=== PATIENT | male | born 1975 | race Caucasian/White ===

== ENCOUNTER 2017-03-29 09:37 | Inpatient (IN) | payer OTHER ==
[~2017-03-29] VITALS: Ht 185.4 cm; Wt 91.3 kg
[2017-03-29] VITALS (81 sets, daily range): BP systolic 95–188; BP diastolic 70–137
--- NOTE | ~2017-03-29 | HC ---
[facility] [place] [address] CONSULTATION Name: ABDIRAHMAN RAO Room #: 237-P [facility] IN M.R.#: [id number] Admission: 03/29/17 Attend Phys: Ethan Nava MD Discharge: Date of : 79 Report #: [id number] THIS REPORT FOR: //name// CC: Avtar Nava DATE OF SERVICE: 03/29/2017 REASON FOR CONSULTATION: Sudden cardiac arrest. HISTORY OF PRESENT ILLNESS: This is a 42-year-old male patient with prior history of coronary artery disease, was found to be unresponsive at work. He subsequently had an AICD placed at work, which proceeded to shocking due to the development of ventricular fibrillation. He converted to sinus mechanism and that deteriorated to ventricular tachycardia and was shocked a total of three times. Upon arrival, he had a left bundle-branch block with no prior history ECG available. Apparently, the patient had not had any symptoms or any complaints prior to that event this morning. PAST MEDICAL HISTORY: Significant for ADHD. MEDICATIONS AT HOME: Adderall 10 mg daily. ALLERGIES: No known drug allergies. SOCIAL HISTORY: The patient is . Does not smoke or consume alcohol. Does not follow a particular exercise regimen or dietary restriction. FAMILY HISTORY: Negative for significant premature cardiovascular disease. REVIEW OF SYSTEMS: Except for symptoms previously mentioned and those commensurate with comorbid state, the 10-point review of system is negative. ELECTROCARDIOGRAM: Sinus tachycardia with a left bundle-branch block. LABORATORIES: Noted and reviewed in the chart. PHYSICAL EXAMINATION: GENERAL: An unresponsive male, intubated, in no apparent distress, but not responsive. HEENT: Normocephalic, atraumatic. Pupils are equal, round, reactive to light and accommodation. Extraocular muscles are intact. Sclerae and conjunctivae are anicteric. NECK: JVD is normal. Carotid upstrokes are bilaterally symmetrical. No bruits are heard. No thyromegaly. No lymphadenopathy. LUNGS: Clear to auscultation. No wheezes, rhonchi or crackles. No CVA [address] [address] CONSULTATION Name: ABDIRAHMAN RAO Room #: 237- ADM IN M.R.#: [id number] Admission: 03/29/17 Attend Phys: Ethan Nava MD Discharge: Date of : 79 Report #: [id number] tenderness. CARDIAC: Demonstrates a regular rhythm. Normal first and second heart sounds. No ventricular or atrial gallops, no rubs noted. No murmurs. No lifts or heaves, PMI normal. ABDOMEN: Soft, nontender, nondistended. Normal bowel sounds. EXTREMITIES: Without cyanosis, clubbing or edema. Distal pulses are intact. DTR symmetrical. NEUROLOGIC: Cranial nerves 2-12 are grossly normal and symmetrical. PSYCHIATRIC: Alert, oriented with normal affect. SKIN: Warm and dry. IMPRESSION AND PLAN: Sudden cardiac arrest in an individual who prior to this had no symptoms whatsoever or issues. In view of the left bundle-branch block, I am going to proceed directly with angiography. The risks, complications and alternative have been discussed with those present. We will proceed to determine whether this is a coronary ischemic event or an antiarrhythmic event. <ELECTRONICALLY SIGNED> By: Adrian Ugarte MD 04/01/17 1849 00 2139 Adrian Ugarte MD /nt
--- NOTE | ~2017-03-29 | HC ---
[facility] [place] [address] CONSULTATION Name: ABDIRAHMAN RAO Room #: 237-P [facility] M.R.#: [id number] Admission: 03/29/17 Attend Phys: Adrian Ugarte Discharge: Date of : 79 Report #: [id number] THIS REPORT FOR: //name// CC: dArian gUarte Hospitalist Service Avtar [place] DATE OF SERVICE: 03/29/2017 DATE OF SERVICE: 03/29/2017. REFERRING PROVIDER: Hospitalist service. REASON FOR CONSULTATION: Respiratory failure. CHIEF COMPLAINT: Altered mental status. HISTORY OF PRESENT ILLNESS: Our group was asked to evaluate the patient in consultation while hospitalized at [facility]. A 42-year-old male unable to give any history. History taken from discussion with healthcare providers available and the at the bedside. Apparently, had been in his usual state of health, which is no health problems other than attention deficit disorder for which he takes Adderall. Subsequently, he was found unresponsive by coworkers, when they heard snoring, thought he might have been apneic and automated external defibrillator device was brought to the area, and the patient was shocked 3 times, and subsequently, EMS arrived, stated he was in V-tach and also defibrillated him, brought to the emergency department of our institution with some cursory laboratories, essentially normal except for an elevated ALT and AST, mildly elevated troponin. Glucose was normal. CBC normal. Subsequently, went to cardiac laboratory equipment cleaner but no significant epicardial coronary artery disease noted, brought back to the ICU; however, seizures had been noted. He is on multiple anti-epileptics at this time, but no seizure activity but it is also not responsive. He has not recovered neurologically at all in between episodes. We were asked to assist with management, currently on mechanical ventilatory support with no significant elevation in peak pressures. Does have spontaneous respirations noted. ALLERGIES: None known. OUTPATIENT MEDICATIONS: Include Adderall. PAST MEDICAL HISTORY: Attention deficit disorder. SOCIAL HISTORY: Nonsmoker and no significant alcohol consumption. Recent travel to [facility]. No other recent travel, no ill feelings. [facility] [address] [place] [address] CONSULTATION Name: ABDIRAHMAN RAO Room #: 237-P [facility] M.R.#: [id number] Admission: 03/29/17 Attend Phys: Adrian Gorevarunmike Discharge: Date of : 79 Report #: [id number] FAMILY HISTORY: Unobtainable. REVIEW OF SYSTEMS: Otherwise, unobtainable due to current status. However, the states had been feeling well even up to the point of leaving for work today. PHYSICAL EXAMINATION: VITAL SIGNS: Afebrile, pulse 90s and regular, respiratory rate 14, blood pressure 123/81. GENERAL: This is a middle-aged male on the ventilator and unresponsive to voice, some extensor posturing with deep pain. ENT: Endotracheal tube in place. Obvious lacerations in tongue from tongue biting noted. NECK: Supple, no lymphadenopathy. LUNGS: Clear. No wheezes or crackles. CARDIOVASCULAR: Heart was regular. No murmurs noted. ABDOMEN: Soft, no masses noted. Bowel sounds are active. EXTREMITIES: Warm, 2+ pulses, no edema. NEUROLOGIC: The patient was unresponsive except to deep pain, with some extensor posturing of upper extremities. Pupils were equal and reactive, somewhat sluggish. LABORATORY DATA: As described in HPI with normal chemistry profile except for elevated ALT, AST, and troponin. CBC normal. Other laboratories pending. IMPRESSION: 1. Acute cardiopulmonary arrest with findings of ventricular tachycardia apparently as an outpatient. 2. Obvious seizures, unclear if there are any inciting event or if they are secondary to the acute arrest. 3. Respiratory failure, acute, secondary to above. 4. Elevated ALT and AST, likely related to the acute event. SUGGESTIONS: 1. Echocardiogram. 2. Check chest radiograph. 3. Continue with mechanical ventilatory support. 4. No hypothermia protocol at this time. 5. EEG per neurology and antiepileptics per neurology. 6. Await followup laboratories. 7. Continue ICU supportive care. 8. Additional recommendations to follow. Thank you for requesting our suggestions. Discussed with at the bedside as [address] [address] CONSULTATION Name: ABDIRAHMAN RAO Room #: 237-P [facility] Lizeth M.RTanya#: [id number] Admission: 03/29/17 Attend Phys: Adrian Ugarte Discharge: Date of : 79 Report #: [id number] well as nursing. Critical care time 25 minutes to this point not including any procedures. By: 1351 0051 Ramon Parmar MD /nt
--- NOTE | ~2017-03-29 | CATHLAB ---
[facility] [address] [place] [address] INVASIVE PROCEDURE REPORT Name: ABDIRAHMAN RAO Room #: 237-P ADM IN M.R.#: [id number] Admission: 03/29/17 Attend Phys: Dee Meyers Discharge: Date of : 79 Date of Service: 03/29/172232 Report #: [id number] THIS REPORT FOR: //name// APPROVED REPORT Patient Details Patient Status: ED Room #: The patient is a 52 year-old male Event Personnel Adrian Ugarte Hand Printed Circuit Board Assembler, Viktoria Davis RN RN, Beto Salazar Monitor, Rosa Yuan RTR Monitor, Anabela Lopezub, Francisco Sanchez RN RN, Leah Rhoades RTR Monitor, Ramona Cristobal Procedures Performed Left Heart Cath w/or w/o Coronaries [id number] [facility] , Left Heart Catheterization, Supervision of conscious sedation Indication Sudden cardiac Procedure Narrative The Right Groin^ was infiltrated with 1% Lidocaine subcutaneous anesthesia. A PINNACLE 6FR Sheath #[id number] sheath was inserted into the RFA^. Coronary angiography was performed using coronary diagnostic catheters. The right coronary system was accessed and visualized with a JR4 catheter. The left coronary system was accessed and visualized with a JL4 catheter. The left ventricle was accessed and visualized with a PIGTAIL catheter. Left ventricular/Aortic Valve gradient assessed via catheter pullback. There was no hematoma. Intraoperative Conscious Sedation Sedation start time: 10:37 Case end Time: 11:31 Versed 3.0 mg Fluoro Time: 3.00 minutes Dose: 5869 mGy Contrast Type and Amount: Visipaque 100 ml Diagnostic Cath Left Main Large calibered normal origin bifurcates left anterior descending left circumflex free of high-grade disease [facility] [address] [place] [address] INVASIVE PROCEDURE REPORT Name: ABDIRAHMAN RAO Room #: 237-P ADM IN M.R.#: [id number] Admission: 03/29/17 Attend Phys: Dee Meyers Discharge: Date of : 79 Date of Service: 03/29/17 2233 Report #: [id number] LAD Moderate to large caliber type III vessel coursing in the anterior interventricular sulcus without high-grade disease in the proximal two thirds. In the distal third there is a segment of approximately 50% narrowing which is at least 20 mm in length prior to reconstituting itself and terminating as a bifurcating branch at the apex Diagonal 1 Moderate caliber vessel without significant stenosis noted Circumflex Large-caliber vessel coursing laterally terminating as a lateral wall marginal branch free of high-grade disease Right Coronary Large-caliber moderate vessel without high-grade disease. R PDA Small to moderate caliber without stenosis noted Hemodynamics The aortic pressure is 117/82 mmHg with a mean of 95 mmHg. The left ventricular pressure is 115/10 mmHg with a mean of mmHg. The left ventricular end diastolic pressure is 15 mmHg. Conclusion 1. Normal coronary arteries 2. Elevated liver ventricular end-diastolic pressures 3. Apparently only mildly decreased left ventricular function on a hand injection LV gram Recommendations 2-D echocardiography to evaluate left ventricular function <ELECTRONICALLY SIGNED> By: Adrian Ugarte MD 03/29/172232 32 32 Adrian Ugarte MD /INF
--- NOTE | ~2017-03-29 | 2DMMODE ---
[facility] [address] [place] [address] 2 D/M-MODE ECHOCARDIOGRAM Name: ABDIRAHMAN RAO Room #: 237-P ADM IN M.R.#: [id number] Admission: 03/29/17 Attend Phys: Adrian Srivastava Discharge: Date of : 79 Date of Service: 03/29/17 1722 Report #: [id number] THIS REPORT FOR: //name// ADDENDUM APPROVED REPORT Study performed: 03/29/2017 14:58:47 EXAM: Comprehensive 2D, Doppler, and color-flow Echocardiogram Patient Location: Bedside Room #: 237 Other Information Study Quality: Technically LimitedTechnically Difficult Technically limited study due to patient on ventilator, inability to position patient. Indications Acute FL Assess Ejection Fraction 2D Dimensions RVDd: 31.80 mm LVEF(%): 23.67 (>50%) IVSd: 12.08 (7-11mm) LVOT Diam: 22.55 (18-24mm) LVDd: 49.34 mm PWd: 12.42 (7-11mm) LVDs: 43.97 (25-40mm) Aortic Root: 34.45 mm IVC: 19.00 mm Meléndez's LVEF: 23.67 % Volumes Left Atrial Volume (Systole) Single Plane 4CH: 19.54 mL Single Plane 2CH: 27.00 mL LA ESV Index: 13.00 mL/m2 Aortic Valve AoV Peak Osvaldo.: 1.23 m/s AO Peak Gr.: 6.05 mmHg LVOT Max P.66 mmHg LVOT Max V: 0.96 m/s KENYATTA Vmax: 3.10 cm2 Mitral Valve E/A Ratio: 0.7 MV Decel. Time: 123.59 ms MV E Max Osvaldo.: 0.47 m/s [facility] [place] [address] 2 D/M-MODE ECHOCARDIOGRAM Name: ABDIRAHMAN RAO Room #: 237-P [facility] IN M.R.#: [id number] Admission: 03/29/17 Attend Phys: Adrian Srivastava Discharge: Date of : 79 Date of Service: 03/29/17 1722 Report #: [id number] MV A Osvaldo.: 0.66 m/s MV PHT: 35.84 ms IVRT: 96.89 ms Pulmonary Valve PV Peak Osvaldo.: 0.96 m/s PV Peak Gr.: 3.69 mmHg Tricuspid Valve RAP Estimate: 10.00 mmHg Left Ventricle The left ventricle is normal size. There is normal left ventricular wall thickness. Left ventricular systolic function is reduced. LVEF is 30-35%. Mild diastolic dysfunction is present (impaired relaxation pattern). Right Ventricle The right ventricle is normal size. Right ventricle is mildly hypokinetic. Atria The left atrium size is normal. The right atrium size is normal. Aortic Valve The aortic valve is normal in structure. No aortic regurgitation is present. There is no aortic valvular stenosis. Mitral Valve The mitral valve is normal in structure. There is no mitral valve regurgitation noted. No evidence of mitral valve stenosis. Tricuspid Valve The tricuspid valve is normal in structure. There is no tricuspid valve regurgitation noted. Pulmonic Valve Pulmonic valve is not well visualized. Great Vessels The aortic root is normal in size. IVC is normal in size. <Conclusion> The left ventricle is normal size. Left ventricular systolic function is reduced. [facility] [place] [address] 2 D/M-MODE ECHOCARDIOGRAM Name: ABDIRAHMAN RAO Room #: 237-P ADM IN M.R.#: [id number] Admission: 03/29/17 Attend Phys: Adrian Srivastava Discharge: Date of : 79 Date of Service: 03/29/171721 Report #: [id number] LVEF is 30-35% Mild diastolic dysfunction is present (impaired relaxation pattern). The aortic valve is normal in structure. The mitral valve is normal in structure. The tricuspid valve is normal in structure. Pulmonic valve is not well visualized. <ELECTRONICALLY SIGNED> By: Adrian Ugarte MD 03/29/171721 21 1722 Adrian Ugarte MD /INF
--- NOTE | ~2017-03-29 | EKG ---
[place] [address] [facility] [place] [address] ELECTROCARDIOGRAM REPORT Name: ABDIRAHMAN RAO Room #: 237-P ADM IN M.R.#: [id number] Admission: 03/29/17 Attend Phys: Ethan Nava MD Discharge: Date of : 79 Report #: [id number] THIS REPORT FOR: //name// [facility] ED Test Date: 2017-03-29 Test Time: 09:39:34 Pat Name: ABDIRAHMAN RAO Department: Room: 237 Gender: M Management Trainee Marketing: RACHEL : 1975 Requested By: Dony Kinsey Order Number: [id number] MD: Valerio Salcedo Measurements Intervals [place] Rate: 96 P: 62 TN: 151 QRS: 71 QRSD: 161 T: 242 QT: 400 QTc: 506 Interpretive Statements Sinus rhythm Left bundle branch block No previous ECG available for comparison Electronically Signed On 03-31-2017 7:05:41 CDT by Valerio Salcedo [email or web address] <ELECTRONICALLY SIGNED> By: Valerio Salcedo MD, [facility] 03/31/17 0705 0939 0939 Valerio Salcedo MD, FACC /EPI
[2017-03-29] MEDS ORDERED: ADDERALL 10 MG10 MG PO (09:45)
[2017-03-29 10:28] LABS: ABSOLUTE NEUTROPHILS 6.7 thou/uL (1.4-8.2); BASOPHILS 0.9 % (0.0-2.0); EOSINOPHILS 0.7 % (0.0-3.0); HEMATOCRIT 42.8 % (42.0-52.0); HEMOGLOBIN 14.5 gm/dL (14.0-18.0); LYMPHOCYTES 18.2 % (24.0-44.0); MCH 31.2 pg (26.0-34.0); MCHC 33.8 g/dL (28.0-37.0); MCV 92.3 fL (80.0-100.0); MONOCYTES 6.1 % (1.0-8.0); PLATELET COUNT 411 thou/uL (150-400); POLYS 74.1 % (36.0-66.0); RBC 4.64 mil/uL (4.50-6.00); RDW 12.4 % (10.5-14.5); WBC 9.1 thou/uL (4.0-11.0)
[2017-03-29 10:30] LABS: MANUAL DIFF NO
[2017-03-29 10:36] LABS: CALCIUM 8.5 mg/dL (8.5-10.1); CREATININE 1.3 mg/dL (0.7-1.3); POTASSIUM 4.5 mmol/L (3.5-5.1)
[2017-03-29 10:43] LABS: APTT 25.7 Seconds (24.5-32.8); PROTIME 10.7 Seconds (9.3-11.4)
[2017-03-29 10:44] LABS: ALBUMIN 3.8 g/dL (3.4-5.0); TOTAL BILIRUBIN 0.5 mg/dL (<0.1-1.0); TOTAL PROTEIN 6.8 g/dL (6.4-8.2); TROPONIN-I 0.18 ng/mL (<0.04-0.07)
[2017-03-29 13:48] LABS: ABG SAMPLE TYPE ARTERIAL; BE(vivo) -2.1 mmol/L (-2 to +3); HCO3 22.4 mmol/L (22.0-26.0); LACTATE 1.87 mmol/L (0.5-2.0); O2(CT) 19.3 mL/dL (15.0-23.0); O2Hb 92.3 % (92.0-98.0); STICK SITE R.RADIAL; pH 7.389 (7.360-7.450); tCO2 23.6 mmol/L (24.0-30.0)
[2017-03-29 13:49] LABS: TIDAL VOLUME 600 ml
[2017-03-29 13:50] LABS: AMP/METHAMP Negative (Negative); BARBITURATES Negative (Negative); BENZODIAZEPINES POSITIVE (Negative); COCAINE Negative (Negative); METHADONE Negative (Negative); OPIATES Negative (Negative); PCP Negative (Negative); THC Negative (Negative)
[2017-03-29 17:01] LABS: CHOLESTEROL 185 mg/dL (<200); HDL CHOLESTEROL 63 mg/dL (>40); LDL CHOLESTEROL 102 mg/dL (<100); TC:HDL 2.9 Ratio (Not establshd); TRIGLYCERIDE 103 mg/dL (<150); VLDL 21 mg/dL (<40)
[2017-03-29 17:03] LABS: TSH 2.511 uIU/mL (0.358-3.740)
[2017-03-29 19:14] LABS: HEMATOCRIT 39.8 % (42.0-52.0); HEMOGLOBIN 13.3 gm/dL (14.0-18.0); MCH 30.5 pg (26.0-34.0); MCHC 33.3 g/dL (28.0-37.0); MCV 91.6 fL (80.0-100.0); RBC 4.35 mil/uL (4.50-6.00); RDW 12.4 % (10.5-14.5); WBC 12.3 thou/uL (4.0-11.0)
[2017-03-29 19:22] LABS: CREATININE 1.1 mg/dL (0.7-1.3); POTASSIUM 3.9 mmol/L (3.5-5.1)
[2017-03-30] VITALS (41 sets, daily range): BP systolic 98–140; BP diastolic 71–102
[2017-03-30 00:05] LABS: FREE T4 1.34 ng/dL (0.82-1.77); PROLACTIN 60.8 ng/mL (4.0-15.2)
[2017-03-30 05:08] LABS: GLYCOHEMOGLOBIN (HGB A1C) 4.6 % (4.8-5.6)
[2017-03-30 05:08] LABS: ABG SAMPLE TYPE ARTERIAL; BE(vivo) 0.9 mmol/L (-2 to +3); FIO2 60 %; HCO3 24.7 mmol/L (22.0-26.0); O2(CT) 18.8 mL/dL (15.0-23.0); O2Hb 98.1 % (92.0-98.0); PCO2 37.1 mmHg (35.0-45.0); PO2 209.1 mmHg (80.0-100.0); STICK SITE L.RADIAL; pH 7.442 (7.360-7.450); sO2 99.5 % (92.0-98.0); tCO2 25.9 mmol/L (24.0-30.0)
[2017-03-30 05:09] LABS: TIDAL VOLUME 600 ml
[2017-03-30 05:39] LABS: HEMATOCRIT 37.3 % (42.0-52.0); HEMOGLOBIN 12.7 gm/dL (14.0-18.0); MCH 31.1 pg (26.0-34.0); MCHC 34.1 g/dL (28.0-37.0); MCV 91.1 fL (80.0-100.0); RBC 4.09 mil/uL (4.50-6.00); RDW 12.4 % (10.5-14.5); WBC 9.5 thou/uL (4.0-11.0)
[2017-03-30 06:03] LABS: CALCIUM 8.1 mg/dL (8.5-10.1); DILANTIN 8.1 ug/mL (10.0-20.0); MAGNESIUM 1.7 mg/dL (1.8-2.4); POTASSIUM 3.6 mmol/L (3.5-5.1)
[2017-03-31] VITALS (24 sets, daily range): BP systolic 107–154; BP diastolic 73–106
[2017-03-31 03:37] LABS: HEMOGLOBIN 13.3 gm/dL (14.0-18.0); MCH 30.9 pg (26.0-34.0); MCHC 33.1 g/dL (28.0-37.0); MCV 93.2 fL (80.0-100.0); RBC 4.3 mil/uL (4.50-6.00); WBC 10.2 thou/uL (4.0-11.0)
[2017-03-31 03:45] LABS: CALCIUM 8.1 mg/dL (8.5-10.1); DILANTIN 12.5 ug/mL (10.0-20.0)
[2017-03-31 11:34] LABS: ABG SAMPLE TYPE ARTERIAL; BE(vivo) 0.8 mmol/L (-2 to +3); HCO3 25.6 mmol/L (22.0-26.0); LACTATE 0.84 mmol/L (0.5-2.0); O2(CT) 17.8 mL/dL (15.0-23.0); O2Hb 96.8 % (92.0-98.0); PCO2 41.8 mmHg (35.0-45.0); PO2 105.5 mmHg (80.0-100.0); pH 7.405 (7.360-7.450); sO2 97.9 % (92.0-98.0); tCO2 26.9 mmol/L (24.0-30.0)
[2017-03-31 11:35] LABS: Pressure Support 8 cm H20; STICK SITE L.RADIAL; TIDAL VOLUME 595 ml
[2017-03-31 11:36] LABS: ABG COMMENT CPAP X 1 HR
[2017-04-01] VITALS (24 sets, daily range): BP systolic 120–176; BP diastolic 80–117
[2017-04-02] VITALS (28 sets, daily range): BP systolic 131–177; BP diastolic 83–116
[2017-04-02 06:15] LABS: HEMATOCRIT 39.2 % (42.0-52.0); HEMOGLOBIN 13.2 gm/dL (14.0-18.0); MCH 30.6 pg (26.0-34.0); MCHC 33.6 g/dL (28.0-37.0); RBC 4.31 mil/uL (4.50-6.00); RDW 12.5 % (10.5-14.5)
[2017-04-02 06:48] LABS: CALCIUM 8.4 mg/dL (8.5-10.1); DILANTIN 13.6 ug/mL (10.0-20.0); POTASSIUM 3.8 mmol/L (3.5-5.1)
[2017-04-02 08:18] LABS: ALBUMIN 3.2 g/dL (3.4-5.0); CALCIUM 8.5 mg/dL (8.5-10.1); POTASSIUM 3.9 mmol/L (3.5-5.1); TOTAL BILIRUBIN 0.8 mg/dL (<0.1-1.0); TOTAL PROTEIN 6.5 g/dL (6.4-8.2)
[2017-04-03] VITALS (11 sets, daily range): BP systolic 118–161; BP diastolic 73–112
[2017-04-03 05:23] LABS: HEMOGLOBIN 13.1 gm/dL (14.0-18.0); MCH 31.1 pg (26.0-34.0); MCHC 34.5 g/dL (28.0-37.0); MCV 90.1 fL (80.0-100.0); RBC 4.22 mil/uL (4.50-6.00); RDW 12.1 % (10.5-14.5); WBC 10.6 thou/uL (4.0-11.0)
[2017-04-03 05:36] LABS: CALCIUM 8.4 mg/dL (8.5-10.1); DILANTIN 10.3 ug/mL (10.0-20.0); POTASSIUM 3.7 mmol/L (3.5-5.1)
[2017-04-04] VITALS (14 sets, daily range): BP systolic 117–145; BP diastolic 72–97
[2017-04-04 05:03] LABS: HEMATOCRIT 37.1 % (42.0-52.0); HEMOGLOBIN 12.6 gm/dL (14.0-18.0); MCV 91.2 fL (80.0-100.0); RBC 4.07 mil/uL (4.50-6.00); RDW 12.4 % (10.5-14.5); WBC 10.6 thou/uL (4.0-11.0)
[2017-04-04 05:39] LABS: ALBUMIN 2.8 g/dL (3.4-5.0); CALCIUM 8.6 mg/dL (8.5-10.1); CREATININE 1.2 mg/dL (0.7-1.3); POTASSIUM 3.7 mmol/L (3.5-5.1); TOTAL BILIRUBIN 0.6 mg/dL (<0.1-1.0); TOTAL PROTEIN 6.8 g/dL (6.4-8.2)
[2017-04-04 23:43] LABS: URINE BILIRUBIN NEGATIVE (Negative); URINE BLOOD TRACE (Negative); URINE COLOR YELLOW; URINE GLUCOSE-RANDOM* NEGATIVE (Negative); URINE KETONES 1+ (Negative); URINE LEUKOCYTES-REFLEX NEGATIVE (Negative); URINE PROTEIN (DIPSTICK) TRACE (Negative); URINE UROBILINOGEN 0.2 E.U./dl (0.2-1.0)
[2017-04-05 00:16] VITALS: BP 119/72
[2017-04-05 00:24] LABS: HEMATOCRIT 37.4 % (42.0-52.0); HEMOGLOBIN 12.4 gm/dL (14.0-18.0); MCH 30.3 pg (26.0-34.0); MCHC 33.1 g/dL (28.0-37.0); MCV 91.3 fL (80.0-100.0); RBC 4.09 mil/uL (4.50-6.00); RDW 12.4 % (10.5-14.5); WBC 11.5 thou/uL (4.0-11.0)
[2017-04-05 00:33] LABS: ALBUMIN 2.9 g/dL (3.4-5.0); CALCIUM 8.5 mg/dL (8.5-10.1); CREATININE 0.8 mg/dL (0.7-1.3); DILANTIN 7.9 ug/mL (10.0-20.0); TOTAL BILIRUBIN 0.4 mg/dL (<0.1-1.0); TOTAL PROTEIN 6.6 g/dL (6.4-8.2)
[2017-04-05 02:09] VITALS: BP 114/72
[2017-04-05 03:27] VITALS: BP 127/77
[2017-04-05 20:26] VITALS: BP 131/88
[2017-04-06 00:06] VITALS: BP 128/87
[2017-04-06 03:22] VITALS: BP 130/86
[2017-04-06 07:15] VITALS: BP 141/92
[2017-04-06] MEDS ORDERED: NICOTINE TRANSD14 M1 TRANSDERM (13:59)
[2017-04-06] MEDS ORDERED: CARVEDILOL12.5 MG PO (13:59)
[2017-04-06] MEDS ORDERED: LIPITOR10 MG PO (13:59)
[2017-04-06] MEDS ORDERED: TYLENOL325 MG PO (14:00)
[2017-04-06] MEDS ORDERED: LISINOPRIL5 MG PO (14:00)
[2017-04-06] MEDS ORDERED: PHENYTOIN SODI100 M3 PO (14:00)
[2017-04-06] MEDS ORDERED: DEPAKOTE 250MG250 M1 PO (14:01)
[2017-04-06] MEDS ORDERED: ZOSYN 3.3753.375 GM IV (14:02)
== END 2017-04-06 14:30 | disposition short-term general hospital (02) | DRG 208 ==
LOC: ER 09:37 → EDBD 09:37 → EROBS 11:01 → ICU 11:01 → 2N 11:01 → ICU 11:24 → 2N 04-05 14:55
PROVIDERS: Emergency Medicine; Family Medicine; Hospitalist; Internal Medicine; Internal Medicine Pulmonary Disease; Nurse Practitioner Acute Care; Psychiatry & Neurology Neurology
PROC: B2111ZZ Fluoroscopy of Multiple Coronary Arteries using Low Osmolar Contrast (ICD-10-PCS; principal; 2017-03-29)
PROC: 4A023N7 Measurement of Cardiac Sampling and Pressure, Left Heart, Percutaneous Approach (ICD-10-PCS; principal; 2017-03-29)
PROC: B2151ZZ Fluoroscopy of Left Heart using Low Osmolar Contrast (ICD-10-PCS; principal; 2017-03-29)
PROC: 5A1945Z Respiratory Ventilation, 24-96 Consecutive Hours (ICD-10-PCS; principal; 2017-03-29)
DX: J96.01 Acute respiratory failure with hypoxia (principal); I46.9 Cardiac arrest, cause unspecified; G93.41 Metabolic encephalopathy; I21.3 ST elevation (STEMI) myocardial infarction of unspecified site; I42.9 Cardiomyopathy, unspecified; I47.2 Ventricular tachycardia; E83.42 Hypomagnesemia; R41.0 Disorientation, unspecified; F90.9 Attention-deficit hyperactivity disorder, unspecified type; Z87.891 Personal history of nicotine dependence; Z79.899 Other long term (current) drug therapy
CPT/HCPCS: 10078; 10081; 62110; 62900